=== PATIENT | female | born 1975 | race American Indian/Alaskan Native ===

== ENCOUNTER 2021-02-03 14:02 | Emergency (ER) | payer SELFPAY ==
[2021-02-03 15:31] VITALS: BP 164/99
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
== END 2021-02-03 17:35 | disposition home or self-care (01) ==
LOC: ED 14:02
DX: S29.012A Strain of muscle and tendon of back wall of thorax, initial encounter (principal); V49.49XA Driver injured in collision with other motor vehicles in traffic accident, initial encounter; Y92.410 Unspecified street and highway as the place of occurrence of the external cause; Y93.89 Activity, other specified; Y99.8 Other external cause status
CPT/HCPCS: 99282